=== PATIENT | female | born 1940 | race Caucasian/White ===

== ENCOUNTER 2024-08-12 14:28 | Outpatient (AMB) | payer OTHER, SELFPAY ==
--- NOTE | 2024-08-12 15:15 | HO.NEPHOV ---
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 She is 83 years of age with hypertension well over 20 years. She has been on multiple anti hypertensive medications and her BP has been at goal. She has remote H/O breast cancer but has no H/O proteinuria or retinopathy. She has H/O Afib and renal cyst but no H/O DM , SHELLIE, PAD, carotid stenosis, CVA, CAD , CHF or renal calculi. She does not take any excess NSAID's. She does not get any recurrent UTI. She has been having CKD3 for some time. She denies any H/O hepatitis, new bone or back pain. She feels well [facility] Medical History (Updated 08/12/24 @ 16:00 by Spenser Singh MD) Renal cyst Breast cancer Osteoporosis Chronic a-fib Hyperlipidemia Hypertension Chronic kidney disease, stage 3a Surgical History Hx of cholecystectomy S/P lumpectomy, right breast S/P lumpectomy, left breast Family History Father Stroke Mother Lung cancer Social History (Updated 08/12/24 @ 15:18 by Noemy Subramanian MA) Alcohol intake: never Patient Tobacco Use Status: Former Tobacco user Review of Systems Const All systems reviewed & are unremarkable except as noted in HPI and below Physical Exam Vital Signs: Last Vital Signs Pulse 57 08/12/24 15:18 BP 138/72 08/12/24 15:18 Pulse Ox 100 08/12/24 15:18 Oxygen Delivery Method Room Air 08/12/24 15:18 BMI result Body Mass Index 30.4 Const General: comfortable and no acute distress Orientation/consciousness: patient oriented x3 HEENT Head: Yes normocephalic Mouth: Normal oral and palatal mucosa present Eyes EOM: EOMs intact bilaterally Neck Neck: Yes supple Resp Auscultation: clear to auscultation bilaterally Cardio Jugular venous distension: no JVD Rate: regular rate GI Palpation (GI): Soft to palpation Auscultation: normal bowel sounds General: Yes no CVA tenderness Back/Spine/Pelvis Back: no CVA tenderness Skin General skin exam: no rashes or lesions noted Neuro General: patient oriented x3 and moves all extremities Extrem General: Yes no pedal edema Results Reviewed Nephrology Results: No Data to Display Assessment & Plan Assessment & Plan (1) Hypertension: Code(s): I10 - Essential (primary) hypertension Category: Medical Qualifiers: Hypertension type: primary hypertension Qualified Code(s): I10 - Essential (primary) hypertension (2) Chronic kidney disease, stage 3a: Code(s): N18.31 - Chronic kidney disease, stage 3a Category: Medical (3) Renal cyst: Code(s): N28.1 - Cyst of kidney, acquired Category: Medical Plan Mimi has CKD for some time. Her renal function has been stable. Most likely her CKD is due to vascular disease. She is not known to have DM or proteinuria. She has no hematuria or flank pain. I ordered renal USS and Doppler of renal arteries. Her BP is currently at goal. She avoids excessive NSAID's and maintain good hydration. She is tolerating ARB well. I did not make any medication changes. All her and her husbands questions were answered. Labs will be repeated at next visit. F/U given Orders: Orders US renal BI 08/12/24 I10 - Essential (primary) hypertension, N18.31 - Chronic kidney disease, stage 3a, N28.1 - Cyst of kidney, acquired US renal doppler 08/12/24 I10 - Essential (primary) hypertension, N18.31 - Chronic kidney disease, stage 3a, N28.1 - Cyst of kidney, acquired Coding Level of Care Code New Pt Level 4 (74955) Diagnoses Primary hypertension I10 Hypertension type: primary hypertension Chronic kidney disease, stage 3a N18.31 Renal cyst N28.1
[2024-08-12 15:18] VITALS: BP 138/72; PULSE 57; O2SAT 100; BMI 30.4
== END 2024-08-12 16:11 | disposition home or self-care (01) ==
PROVIDERS: PCP Hospitalist; Referring Provider Hospitalist; Visit Provider Internal Medicine Nephrology
DX: I10 Essential (primary) hypertension (principal); N18.31 Chronic kidney disease, stage 3a; N28.1 Cyst of kidney, acquired
CPT/HCPCS: 99204

== ENCOUNTER → 2024-08-12 14:28 | Outpatient (BNVA) | payer OTHER, SELFPAY | PROVIDERS: PCP Hospitalist; Referring Provider Hospitalist; Visit Provider Internal Medicine Nephrology ==

== ENCOUNTER 2024-08-26 08:58 | Outpatient (REF) | payer OTHER, SELFPAY ==
--- NOTE | ~2024-08-26 | US_ITS ---
EXAMINATION: US RETROPERITONEAL LIMITED (RENAL ONLY) CLINICAL INFORMATION: Essential hypertension, renal cyst, CKD. COMPARISON: None available. TECHNIQUE: Ultrasound along with color Doppler imaging and spectral analysis was performed of the kidneys. FINDINGS: Peak systolic velocity in the abdominal aorta in the region of the main renal arteries is 73.2 cm/sec. RIGHT KIDNEY: 9.8 x 4.9 x 3.9 cm (SAG x AP x TRV). The kidney is normal in size, contour, and echogenicity. Renal cortical thickness is normal. No calculi or focal parenchymal lesions. Right upper pole cyst 1.6 x 1.8 x 2.1 cm with thin septation. No hydronephrosis. RIGHT: Peak systolic velocities in the right main renal artery are as follows: At the hilum = 120 cm/sec. At the mid portion = 90 cm/sec. At the origin = 79 cm/sec. The right main renal artery/aorta peak systolic velocity ratio is 1.64, which is within normal limits. Systolic acceleration times in the arcuate arteries of the right kidney are as follows: Superior pole = 0.77 msec. Interpolar region = 0.68 msec. Inferior pole = 0.81 msec. There is no tardus-parvus morphology seen. Diastolic flow is preserved within the right renal artery. Renal vein patent. LEFT KIDNEY: 11.0 x 6.4 x 5.1 cm (SAG x AP x TRV). The kidney is normal in size, contour, and echogenicity. Renal cortical thickness is normal. No calculi or focal parenchymal lesions. Multiple cysts, the largest in the lower pole with septation measuring 6.3 x 3.7 x 4.3 cm. No hydronephrosis. LEFT: Peak systolic velocities in the left main renal artery are as follows: At the hilum = 192 cm/sec. At the mid portion = 99 cm/sec. At the origin = 132 cm/sec. The left main renal artery/aorta peak systolic velocity ratio is 2.62, which is abnormal. Systolic acceleration times in the arcuate arteries of the left kidney are as follows: Superior pole = 0.79 msec. Interpolar region = 0.85 msec. Inferior pole = 0.85 msec. There is no tardus-parvus morphology seen. Diastolic flow is preserved within the left renal artery. Renal vein patent. US/US renal doppler IMPRESSION: 1. Suggestion of mild left renal artery stenosis, nonhemodynamically significant. 2. Bilateral renal cysts with septation. 3. No renal calculi or obstructive uropathy. Electronically signed by: Jone Pardo DO 08/26/2024 03:42 PM EDT
== END 2024-08-26 08:59 | disposition home or self-care (01) ==
LOC: HO.US 08:58
PROVIDERS: PCP Hospitalist; Visit Provider Internal Medicine Nephrology
DX: I10 Essential (primary) hypertension (principal); N18.31 Chronic kidney disease, stage 3a; N28.1 Cyst of kidney, acquired
CPT/HCPCS: 76775; 93975

== ENCOUNTER 2024-11-30 10:46 | Outpatient (AMB) | payer OTHER, SELFPAY ==
[2024-11-30 10:59] VITALS: BP 150/70; PULSE 82; O2SAT 97; BMI 29.9
--- NOTE | 2024-11-30 10:59 | HO.NEPHOV_ITS ---
Vital Signs 11/30/24 10:59 Height 5 ft 2 in Weight 163 lb 8 oz BMI 29.9 BP 150/70 H Blood Pressure Location Rt brachial Position Sitting Pulse 82 Pulse Source Pulse Oximeter Pulse Oximetry (%) 97 Oxygen Delivery Method Room Air Intake Visit Reasons: 3mon follow up-Conf Child Adolescent Psychiatrist Required: No Accompanied by: Spouse Allergies penicillamine Allergy (Verified 11/30/24 10:59) Unknown HPI Comments Details: Mimi was seen for follow up of management of her CKD, hypertension and renal cyst. She is 84 years of age with hypertension well over 20 years. She has been on multiple anti hypertensive medications and her BP has been at goal. She has remote H/O breast cancer but has no H/O proteinuria or retinopathy. She has H/O Afib and renal cyst but no H/O DM , SHELLIE, PAD, carotid stenosis, CVA, CAD , CHF or renal calculi. She does not take any excess NSAID's. She does not get any recurrent UTI. She has been having CKD3 for some time. She denies any H/O hepatitis, new bone or back pain. She feels well [facility] Medical History (Updated 11/30/24 @ 11:27 by Spenser Singh MD) Renal cyst Breast cancer Osteoporosis Chronic a-fib Hyperlipidemia Hypertension Chronic kidney disease, stage 3a Surgical History Hx of cholecystectomy S/P lumpectomy, right breast S/P lumpectomy, left breast Family History Father Stroke Mother Lung cancer Social History Alcohol intake: never Patient Tobacco Use Status: Former Tobacco user Review of Systems Const All systems reviewed & are unremarkable except as noted in HPI and below Physical Exam Vital Signs: Last Vital Signs Pulse 82 11/30/24 10:59 BP 150/70 H 11/30/24 10:59 Pulse Ox 97 11/30/24 10:59 Oxygen Delivery Method Room Air 11/30/24 10:59 BMI result Body Mass Index 29.9 Const General: comfortable and no acute distress Orientation/consciousness: patient oriented x3 HEENT Head: Yes normocephalic Mouth: Normal oral and palatal mucosa present Eyes EOM: EOMs intact bilaterally Neck Neck: Yes supple Resp Auscultation: clear to auscultation bilaterally Cardio Jugular venous distension: no JVD Rate: regular rate GI Palpation (GI): Soft to palpation Auscultation: normal bowel sounds General: Yes no CVA tenderness Back/Spine/Pelvis Back: no CVA tenderness Skin General skin exam: no rashes or lesions noted Neuro General: patient oriented x3 and moves all extremities Extrem General: Yes no pedal edema Results Reviewed Nephrology Results: Renal US 08/26/24 Assessment & Plan Assessment & Plan (1) Chronic kidney disease, stage 3a: Code(s): N18.31 - Chronic kidney disease, stage 3a Category: Medical (2) Renal cyst: Code(s): N28.1 - Cyst of kidney, acquired Category: Medical (3) Renovascular hypertension: Code(s): I15.0 - Renovascular hypertension Category: Medical Plan Mimi has CKD for some time. Her renal function has been stable. She has renovascular disease. She is not known to have DM or proteinuria. She has no hematuria or flank pain. Her BP is currently at goal, most of the time. If she has her BP going up, we shall increase her metoprolol. She avoids excessive NSAID's and maintain good hydration. She is tolerating ARB well. I did not make any medication changes. All her and her husbands questions were answered. F/U given Orders: Orders Blood Urea Nitrogen 6 Months I15.0 - Renovascular hypertension, N18.31 - Chron ic kidney disease, stage 3a, N28.1 - Cyst of kidney, acquired Electrolytes 6 Months I15.0 - Renovascular hypertension, N18.31 - Chronic kidney disease, stage 3a, N28.1 - Cyst of kidney, acquired Creatinine 6 Months I15.0 - Renovascular hypertension, N18.31 - Chronic kidney disease, stage 3a, N28.1 - Cyst of kidney, acquired Coding Level of Care Code Est Pt Level 4 (43597) Diagnoses Chronic kidney disease, stage 3a N18.31 Renal cyst N28.1 Renovascular hypertension I15.0
--- OUTSIDE RECORDS SUMMARY | 2024-11-30 11:39 | XMS_ITS | Clinical Summary ---
Author Organization [facility] Address [address] [place] [address] Care Team Providers Care Head Teacher Name Role Phone Patrice Alvarez MD Primary Care Provider [phone] Allergies Active Allergy Reactions Criticality Noted Date Comments Penicillins 10/10/2017 Medications Medication Sig Dispensed Refills Start Date End Date Status warfarin (COUMADIN) 1 MG tablet Take 1 mg by mouth daily. 0 Active calcium acetate (PHOSLO) 667 MG capsule Take 667 mg by mouth 2 (two) times a day. 0 Active metoprolol succinate (TOPROL-XL) 24 hr tablet 100 mg Take 100 mg by mouth daily. 0 Active Multiple Vitamins-Minerals (PRESERVISION AREDS) CAPS Take by mouth daily. 0 Active atorvastatin (LIPITOR) tablet 20 mg Take 20 mg by mouth daily. 0 Active ibandronate (BONIVA) 150 MG tablet Take 1 tablet (150 mg total) by mouth every 30 (thirty) days. Take in AM with glass of water prior to food, don't lie down for 30 minutes. 1 tablet 11 04/11/2017 Active letrozole (FEMARA) 2.5 MG tablet Take 2.5 mg by mouth daily. 0 Active losartan-hydrochloroth iazide (HYZAAR) 100-25 MG per tablet Take 1 tablet by mouth daily. 0 Active Cholecalciferol (VITAMIN D) 2000 units tablet Take 2,000 Units by mouth daily. 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 breast 04/11/2017 Family History Medical History Relation Name Comments Cancer Mother lung Relation Name Status Comments Mother Social History Tobacco Use Types Packs/Day Years Used Date Smoking Tobacco: Former Smokeless Tobacco: Never Alcohol Use Standard Drinks/Week Comments No 0 (1 standard drink = 0.6 oz pur e alcohol) Sex and Gender Information Value Date Recorded Sex Assigned at Not on file Gender Identity Not on file Sexual Orientation Not on file Job Start Date Occupation Industry Not on file Not on file Not on file Last Filed Vital Signs Vital Sign Reading Time Taken Comments Blood Pressure 141/72 04/23/2022 9:04 AM EDT Pulse 79 04/23/2022 9:04 AM EDT Temperature 36.7 ??C (98.1 ??F) 04/23/2022 9:04 AM ED T Respiratory Rate - - Oxygen Saturation 98% 04/23/2022 9:04 AM EDT Inhaled Oxygen Concentration - - Weight 78.5 kg (173 lb) 04/23/2022 9:04 AM EDT Height 157.5 cm (5' 2 ) 04/23/2022 9:04 AM EDT Body Mass Index 31.64 04/23/2022 9:04 AM EDT Plan of Treatment Health Maintenance Due Date Last Done Comments COVID-19 Vaccine (#1) 1945 Pneumococcal Vaccine (1 of 2 - PCV) 1946 Depression Screening 1952 BMI Counseling 1958 Preventative Health Evaluation 1958 DTap / Tdap / Td (1 - Tdap) 1959 Shingrix-Zoster Vaccine (1 of 2) 1959 Fall Risk Assessment 2005 Osteoporosis Screening (DEXA Scan) 2005 RSV Adult > 60+ Yrs or Pregn ant (1 - 1-dose 75+ series) 2015 Influenza Vaccine (#1) 2024 Hepatitis B Vaccines Aged Out No long er eligible based on patient's age to complete this topic RSV Ped < 20 months Aged Out No longe r eligible based on patient's age to complete this topic Care Teams Head Teacher Relationship Specialty Start Date End Date Patrice Alvarez MD PCP - General Internal Medicine 04/11/17
--- OUTSIDE RECORDS SUMMARY | 2024-11-30 11:39 | XMS_ITS | Encounter Summary ---
Author Organization [facility] Address [address] [place] [id number] Care Team Providers Care Mold Finisher Name Role Phone Patrice Alvarez MD Primary Care Provider [phone] Encounter Details Date Type Department Care Team (Late st Contact Info) Description 11/17/2024 Anticoagulation - Warfarin Visit [facility] Cardiology [facility] [address] [place] [id number] Jeet Gong MD [address] [place] [address] Atrial fibrillation, unspecified type (CMS/HCC) (Primary Dx) Social History Tobacco Use Types Packs/Day Years [...] file Not on file Not on file documented as of this encounter Progress Notes * Rommel Espinoza MA - 11/17/2024 1:57 PM EST Patient aware of instructions documented in this encounter Plan of Treatment Upcoming Encounters Date Type Department Care Team (Late st Contact Info) Description 01/11/2025 9:00 AM EDT Ancillary Procedure [facility] Cardiology [facility] [address] [place] [id number] documented as of this encounter Visit Diagnoses Diagnosis Atrial fibrillation, unspecified type (CMS/HCC)- Primary documented in this encounter Care Teams Mold Finisher Relationship Specialty Start Date End Date Patrice Alvarez MD [address] [place] [phone] PCP - General Internal Medicine 09/18/20 documented as of this encounter
--- OUTSIDE RECORDS SUMMARY | 2024-11-30 11:40 | XMS_ITS | Clinical Summary ---
Author Organization [address] [facility] Address [address] [facility] [place] [address] Phone Care Team Providers Care Electroplater Apprentice Name Role Phone Amaya Gomez MD Primary Care Provider [phone] Allergies Active Allergy Reactions Criticality Noted Date Comments Influenza A (H1n1) Virus Vac cine Monovalent 200810/04/2024 Penicillins 10/10/2017 Medications Medication Sig Dispensed Refills Start Date End Date Status warfarin (COUMADIN) 1 mg tablet Take 1-2 tabs as directed by [facility] 01/30/2023 Active atorvastatin (LIPITOR) 20 mg tablet Take 1 tablet (20 mg total) by mouth at bedtime. Active ibandronate (BONIVA) 150 mg tablet Take 1 tablet (150 mg total) by mouth every 30 (thirty) days. Take in AM with glass of water prior to food, don't lie down for 30 minutes. 04/11/2017 Active metoprolol succinate (TOPROL-XL) 100 mg 24 hr tablet Take 100 mg by mouth daily. Active losartan-hydroCHL OROthiazide (HYZAAR) 100-25 mg per tablet Take 1 tablet by mouth 1 (one) time each day. Active warfarin (COUMADIN) 5 mg tablet TAKE 1 TABLET BY MOUTH EVERY DAY 90 tablet 3 11/30/2024 Active warfarin (COUMADIN) 5 mg tablet Take 1 tablet (5 mg total) by mouth 1 (one) time each day. 12/08/2023 11/30/2024 Discontinued Active Problems Problem Noted Date Diagnosed Date A-fib 09/29/2024 Tricuspid valve insufficiency, non-rheumatic Hypertension 11/21/2021 Nonrheumatic mitral valve regurgitation 11/21/19 22 SOB (shortness of breath) 11/21/2021 Heart murmur 11/08/2020 Overview (10/04/2024): Murmur Hyperlipidemia 11/08/2020 Overview (10/04/2024): Hyperlipidemia Encounters Date Type Department Care Team Description 11/17/2024 Anticoagulation - Warfarin Visit [facility] [address] [place] [address] Jeet Gong MD Atrial fibrillation, unspecified type (CMS/HCC) (Primary Dx) 10/28/2024 Anticoagulation - Warfarin Visit [facility] [address] [place] [address] Jeet Gong MD Atrial fibrillation, unspecified type (CMS/HCC) (Primary Dx) 10/13/2024 Anticoagulation - Warfarin Visit [facility] [address] [place] [address] Jeet Gong MD Atrial fibrillation, unspecified type (CMS/HCC) (Primary Dx) 10/06/2024 Anticoagulation - Warfarin Visit [facility] [address] [place] [address] Jeet Gong MD Atrial fibrillation, unspecified type (CMS/HCC) (Primary Dx) 10/06/2024 Anticoagulation - Warfarin Visit [facility] [address] [place] [address] Jeet Gong MD Atrial fibrillation, unspecified type (CMS/HCC) (Primary Dx) 09/29/2024 Anticoagulation - Warfarin Visit [facility] [address] [place] [address] Jeet Gong MD Atrial fibrillation, unspecified type (CMS/HCC) [I48.91] (Primary Dx) 09/01/2024 Anticoagulation - Warfarin Visit [facility] [address] [place] [address] Jeet Gong MD Atrial fibrillation, unspecified type (CMS/HCC) [I48.91] (Primary Dx) from Last 3 Months Social History Tobacco Use Types Packs/Day Years [...] file Not on file Not on file Obstetrics History Last Filed Vital Signs Vital Sign Reading Time Taken Comments Blood Pressure 134/68 01/12/2024 9:47 AM EDT Pulse 71 01/12/2024 9:28 AM EDT Temperature - - Respiratory Rate - - Oxygen Saturation - - Inhaled Oxygen Concentration - - Weight 78.5 kg (173 lb) 01/12/2024 9:28 AM EDT Height 154.9 cm (5' 1 ) 01/12/2024 9:28 AM EDT Body Mass Index 32.69 01/12/2024 9:28 AM EDT Plan of Treatment Upcoming Encounters Date Type Department Care Team (Late st Contact Info) Description 01/11/2025 9:00 AM EDT Ancillary Procedure [facility] [address] [place] [address] Health Maintenance Due Date Last Done Comments Zoster Vaccines (2 of 2) 10/08/2019 08/13/2019 Cholesterol Screening (Lipid Panel) 10/04/2022 Depression Screening 10/04/2022 Falls Risk Assessment 10/04/2022 Medicare Annual Wellness Visit 10/04/2022 Social Influencers of Health Screening 10/04/2022 Hypertension/CHF/CAD Annual BMP Blood Test 10/06/2022 Osteoporosis Screening (Bone Density Screening) 03/18/2033 03/18/2023, 03/05/2021, 02/15/2019 DTaP,Tdap,and Td Vaccines (2 - Td or Tdap) 06/25/2033 06/25/2023 Pneumococcal Vaccine: 65+ Years Completed 02/11/2020, 01/22/2019 RSV Immunization Patients 60+ Years Old Completed 07/01/2023 COVID-19 Vaccine Completed 07/06/2024, , 07/08/2022, Additional history exists Influenza Vaccine Completed 07/06/2024, , 07/08/2022, Additional history exists HIB Vaccines Aged Out No longer eligi ble based on patient's age to complete this topic HPV Vaccines Aged Out No longer eligi ble based on patient's age to complete this topic Hepatitis A Vaccines Aged Out No long er eligible based on patient's age to complete this topic Hepatitis B Vaccines Aged Out No long er eligible based on patient's age to complete this topic IPV Vaccines Aged Out No longer eligi ble based on patient's age to complete this topic MMR Vaccines Aged Out No longer eligi ble based on patient's age to complete this topic Meningococcal ACWY Vaccine Aged Out N o longer eligible based on patient's age to complete this topic RSV Immunization Patients Under 20 months Aged Out No longer eligible based on patient's age to complete this topic Varicella Vaccines Aged Out No longer eligible based on patient's age to complete this topic Procedures Procedure Name Priority Date/Time Associated Diagnosis Comments PROTHROMBIN TIME WITH INR Routine 11/17/2024 8:35 AM EST Atrial fibrillation (CMS/HCC) PROTHROMBIN TIME WITH INR Routine 10/28/2024 7:46 AM EST Atrial fibrillation (CMS/HCC) PROTHROMBIN TIME WITH INR Routine 10/13/2024 9:29 AM EST Atrial fibrillation (CMS/HCC) PROTHROMBIN TIME WITH INR Routine 10/06/2024 9:07 AM EST Atrial fibrillation (CMS/HCC) PROTHROMBIN TIME WITH INR Routine 10/06/2024 PROTHROMBIN TIME WITH INR Routine 09/29/2024 8:53 AM EST Atrial fibrillation (CMS/HCC) PROTHROMBIN TIME WITH INR Routine 09/01/2024 8:51 AM EST Atrial fibrillation (CMS/HCC) [facility] DEXA AXIAL SKELETON Routine 03/18/2023 10:06 AM EDT Other specified disorders of bone density and structure, other site from Last 3 Months or Most Recently Relevant to Health Maintenance Results * (ABNORMAL) Prothrombin time with INR (11/17/2024 8:35 AM EST) Only the most recent of7 resultswithin the time period is included. Protime 25.7(H) 10.6 - 13.9 sec LAB COAGULATION METHOD 11/17/2024 12:26 PM EST [facility] INR 2.0 LAB COAGULATION METHOD 11/17/2024 12:26 PM EST [facility] Blood Venous blood specimen / Unknown Venipuncture / Unknown 11/17/2024 8:35 AM EST 11/17/2024 8:35 AM EST Jeet Gong MD LAB BLOOD ORDERABL ES [facility] [address] [place] [address], * [facility] DEXA AXIAL SKELETON (03/18/2023 10:06 AM EDT) Anatomical Region Laterality Modality Mammography 03/18/2023 8:55 AM EDT Narrative 03/18/2023 10:06 AM EDT [facility] Diagnostic Imaging Department [address] [place] [address] Patient: ??JOSE ARMANDO TRAN ?/Age/Sex: 1940 - F Unit#: ??[id number] ? Location/Status: ??SPDIMAM/REG CLI ? Mnemonic/Ordering Site: ??MAMDEXAAX/SPMAM Ordering Physician: ??AMAYA GOMEZ MD [facility] Dexa Axial Skeleton - 03/18/23947 HISTORY: ??The patient is an 82-year-old postmenopausal female with clinical concern for metabolic bone disease. FINDINGS: ??Dual energy x-ray absorptiometry of the lumbar spine and femurs is performed. The mean bone mineral density at L2-3 is 1.164 gm/cm2 which is 97% of that of young normals and 113% of that of age matched controls. This yields a T- score of -0.3 and a Z-score of 1.1 and there is therefore no evidence of osteoporosis or osteopenia here. The mean bone mineral density of the femurs bilaterally is 0.859 gm/cm2 which is 85% of that of young normals and 110% of that of age matched controls. ??This yields a T-score of -1.2 and a Z-score of 0.6 which is diagnostic of osteopenia. The T-score of the right femoral neck is -1.9 and that of the left femoral neck is -2.0 which is diagnostic of osteopenia. IMPRESSION: 1. Osteopenia. ??There has been an increase of 2.4% in bone mineral density in the lumbar spine since the prior examination of 03/05/2021. ??There has been an increase of 0.1% in bone mineral density in the right femur and an increase of 2.4% in bone mineral density in the left femur. 2. FRAX analysis yields a 10-year probability of major osteoporotic fracture of 14.7% and a 10-year probability of hip fracture of 4.3%. Code 22219 Dictating Physician: ??BALDO BANERJEE MD Electronically Signed by: ??BALDO BANERJEE MD Dic Date/Time: ??03/18/23 1005 Sign date/Time: ??03/18/23 1006 Procedure Note Baldo Banerjee MD - 11/28/2023 [facility] Diagnostic Imaging Department [address] [place] [id number] Patient: JOSE ARMANDO TRAN Izzy CristinaB./Age/Sex: 1940 - F Unit#: [id number] Location/Status: [facility] CLI [facility] Ordering Physician: AMAYA GOMEZ MD [facility] Dexa Axial Skeleton - 03/18/23947 HISTORY: The patient is an 82-year-old postmenopausal female withclinical concern for metabolic bone disease. FINDINGS: Dual energy x-ray absorptiometry of the lumbar spine and femursis performed. The mean bone mineral density at L2-3 is 1.164 gm/cm2 which is97% of that of young normals and 113% of that of age matched controls. Thisyields a T- score of -0.3 and a Z-score of 1.1 and there is therefore no evidence of osteoporosis or osteopenia here. The mean bone mineral density of the femurs bilaterally is 0.859 gm/gm2keqtq is 85% of that of young normals and 110% of that of age matched controls.This yields a T-score of -1.2 and a Z-score of 0.6 which is diagnostic ofosteopenia. The T-score of the right femoral neck is -1.9 and that of the left femoralneck is -2.0 which is diagnostic of osteopenia. IMPRESSION: 1. Osteopenia. There has been an increase of 2.4% in bone mineral densityin the lumbar spine since the prior examination of 03/05/2021. There has beenan increase of 0.1% in bone mineral density in the right femur and anincrease of 2.4% in bone mineral density in the left femur. 2. FRAX analysis yields a 10-year probability of major osteoporoticfracture of 14.7% and a 10-year probability of hip fracture of 4.3%. Code 07893 Dictating Physician: BALDO BANERJEE MD Electronically Signed by: BALDO BANERJEE MD Dic Date/Time: 03/18/23 1005 Sign date/Time: 03/18/23 1006 Amaya Gomez MD IMG BI PROCEDURES from Last 3 Months or Most Recently Relevant to Health Maintenance Advance Directives Documents on File Type Date Recorded Patient Home Health Lpn Expl anation Health Care Decision (hx) 11/24/2014 AD MTZ DIRECTIVE Health Care Decision (hx) 11/24/2014 AD MTZ DIRECTIVE Health Care Decision (hx) 11/24/2014 AD MTZ DIRECTIVE Health Care Decision (hx) 11/24/2014 AD MTZ DIRECTIVE Health Care Decision (hx) 11/24/2014 AD MTZ DIRECTIVE Health Care Decision (hx) 11/24/2014 AD MTZ DIRECTIVE Health Care Decision (hx) 11/24/2014 AD MTZ DIRECTIVE Health Care Decision (hx) 11/24/2014 AD MTZ DIRECTIVE Health Care Decision (hx) 11/24/2014 AD MTZ DIRECTIVE Health Care Decision (hx) 11/24/2014 AD MTZ DIRECTIVE Health Care Decision (hx) 11/24/2014 AD MTZ DIRECTIVE Health Care Decision (hx) 11/24/2014 AD MTZ DIRECTIVE Care Teams Electroplater Apprentice Relationship Specialty Start Date End Date Amaya Gomez MD [address] [place] [address] PCP - General Internal Medicine 09/18/20
== END 2024-11-30 11:41 | disposition home or self-care (01) ==
PROVIDERS: PCP Hospitalist; Visit Provider Internal Medicine Nephrology
DX: I12.9 Hypertensive chronic kidney disease with stage 1 through stage 4 chronic kidney disease, or unspecified chronic kidney disease (principal); N18.31 Chronic kidney disease, stage 3a; N28.1 Cyst of kidney, acquired
CPT/HCPCS: 99214

== ENCOUNTER → 2024-11-30 10:46 | Outpatient (BNVA) | payer OTHER, SELFPAY | PROVIDERS: PCP Hospitalist; Visit Provider Internal Medicine Nephrology ==

== ENCOUNTER 2025-06-30 10:58 | Outpatient (AMB) | payer OTHER, SELFPAY ==
--- NOTE | 2025-06-30 11:05 | HO.NEPHOV_ITS ---
Vital Signs 06/30/25 11:07 Height 5 ft 2 in Weight 161 lb 2 oz BMI 29.5 BP 160/72 H Blood Pressure Location Lt brachial Position Sitting Pulse 72 Pulse Source Pulse Oximeter Pulse Oximetry (%) 96 Oxygen Delivery Method Room Air Intake Visit Reasons: Follow up 6mo-Conf Manager Stylist Required: No Accompanied by: Spouse Allergies penicillamine Allergy (Verified 06/30/25 11:07) Unknown HPI Comments Details: Mimi was seen for follow up of management of her CKD, hypertension and renal cyst. She is 84 years of age with hypertension well over 20 years. She has been on multiple anti hypertensive medications and her BP has been at goal. She has remote H/O breast cancer but has no H/O proteinuria or retinopathy. She has H/O Afib and renal cyst but no H/O DM , SHELLIE, PAD, carotid stenosis, CVA, CAD , CHF or renal calculi. She does not take any excess NSAID's. She does not get any recurrent UTI. She has been having CKD3 for some time. She denies any H/O hepatitis, new bone or back pain. Her BP is at goal at home [facility] Medical History (Updated 11/30/24 @ 11:27 by Spenser Singh MD) Renal cyst Breast cancer Osteoporosis Chronic a-fib Hyperlipidemia Hypertension Chronic kidney disease, stage 3a Surgical History Hx of cholecystectomy S/P lumpectomy, right breast S/P lumpectomy, left breast Family History Father Stroke Mother Lung cancer Social History Alcohol intake: never Patient Tobacco Use Status: Former Tobacco user Review of Systems Const All systems reviewed & are unremarkable except as noted in HPI and below Physical Exam Const General: comfortable and no acute distress Orientation/consciousness: patient oriented x3 HEENT Head: Yes normocephalic Mouth: Normal oral and palatal mucosa present Eyes EOM: EOMs intact bilaterally Neck Neck: Yes supple Resp Auscultation: clear to auscultation bilaterally Cardio Jugular venous distension: no JVD Rate: regular rate GI Palpation (GI): Soft to palpation Auscultation: normal bowel sounds General: Yes no CVA tenderness Back/Spine/Pelvis Back: no CVA tenderness Skin General skin exam: no rashes or lesions noted Neuro General: patient oriented x3 and moves all extremities Extrem General: Yes no pedal edema Results Reviewed Nephrology Results: Renal US 08/26/24 Assessment & Plan Assessment & Plan (1) Renovascular hypertension: Code(s): I15.0 - Renovascular hypertension Category: Medical (2) Chronic kidney disease, stage 3a: Code(s): N18.31 - Chronic kidney disease, stage 3a Category: Medical (3) Renal cyst: Code(s): N28.1 - Cyst of kidney, acquired Category: Medical Plan Mimi has CKD for some time. Her renal function has been stable. She has renovascular disease. She is not known to have DM or proteinuria. She has no hematuria or flank pain. Her BP is currently at goal, most of the time. If she has her BP going up, we shall increase her metoprolol. She avoids excessive NSAID's and maintain good hydration. She is tolerating ARB well. I did not make any medication changes. All her and her husbands questions were answered. F/U given Orders: Orders Creatinine 1 Year I15.0 - Renovascular hypertension, N18.31 - Chronic kidney disease, stage 3a, N28.1 - Cyst of kidney, acquired Blood Urea Nitrogen 1 Year I15.0 - Renovascular hypertension, N18.31 - Chronic kidney disease, stage 3a, N28.1 - Cyst of kidney, acquired Electrolytes 1 Year I15.0 - Renovascular hypertension, N18.31 - Chronic kidney disease, stage 3a, N28.1 - Cyst of kidney, acquired Coding Level of Care Code Est Pt Level 4 (67935) Diagnoses Renovascular hypertension I15.0 Chronic kidney disease, stage 3a N18.31 Renal cyst N28.1
[2025-06-30 11:07] VITALS: BP 160/72; PULSE 72; O2SAT 96; BMI 29.5
--- OUTSIDE RECORDS SUMMARY | 2025-06-30 12:34 | XMS_ITS | Encounter Summary ---
Author Organization [facility] Address [address] [place] [address] Care Team Providers Care Fish Smoker Name Role Phone Patrice Alvarez MD Primary Care Provider [phone] Encounter Details Date Type Department Care Team (Late st Contact Info) Description 06/29/2025 Anticoagulation - Warfarin Visit [facility] [address] [facility] [address] [place] [address] Jeet Gong MD [address] [place] [address] [address] [place] [address] Atrial fibrillation, unspecified type (CMS/HCC V24, CMS/HCC V28) (Primary Dx) Social History Tobacco Use Types Packs/Day Years Used Date Smoking Tobacco: Former Smokeless Tobacco: Never Alcohol Use Standard Drinks/Week Comments No 0 (1 standard drink = 0.6 oz pur e alcohol) Comments No Sex and Gender Information Value Date Recorded Sex Assigned at Not on file Legal Sex Female 4:48 AM EST Gender Identity Not on file Sexual Orientation Not on file documented as of this encounter Progress Notes * Rommel Espinoza MA - 06/29/2025 3:18 PM EDT Patient aware of instructions documented in this encounter Plan of Treatment Upcoming Encounters Date Type Department Care Team (Late st Contact Info) Description 09/06/2025 1:10 PM EST Office Visit [facility] - [address] [facility] [address] [place] [address] Yulissa Mukherjee PA [address] [place] [address] Dr [address] [place] [address] documented as of this encounter Visit Diagnoses Diagnosis Atrial fibrillation, unspecified type (CMS/HCC V24, CMS/HCC V28)- Primary documented in this encounter Care Teams Fish Smoker Relationship Specialty Start Date End Date Patrice Alvarez MD [address] [place] [phone] PCP - General Internal Medicine 09/18/20 documented as of this encounter
--- OUTSIDE RECORDS SUMMARY | 2025-06-30 12:34 | XMS_ITS | Clinical Summary ---
Author Organization [facility] Address [address] [place] [address] Care Team Providers Care Sales & Service Associate Name Role Phone Patrice Alvarez MD Primary Care Provider [phone] Allergies Active Allergy Reactions Criticality Noted Date [...] 79 04/23/2022 9:04 AM EDT Temperature 36.7 C (98.1 F) 04/23/2022 9:04 AM EDT Respiratory Rate - - Oxygen Saturation 98% [...] 1-dose 75+ series) 2015 Influenza Vaccine (#1) 2025 Hepatitis B Vaccines Aged Out No long er eligible based on patient's age to complete this topic RSV Ped < 20 months Aged Out No longe r eligible based on patient's age to complete this topic Care Teams Sales & Service Associate Relationship Specialty Start Date End Date Patrice Alvarez MD PCP - General Internal Medicine 04/11/17
--- OUTSIDE RECORDS SUMMARY | 2025-06-30 12:34 | XMS_ITS | Patient Health Record ---
[facility] Organization [facility] Address [address] [place] [address] Care Team Providers Care Customs And Border Protection Officer Name Role Phone AMAYA GOMEZ Primary Care Provider Emily Rodrigues Unavailable [phone] Allergies Allergen (clinical drug ingredient) Drug/Non Drug Allergy documented on EMR Reaction Allergy Type Onset Date Status penicillamine Penicillamine Unknown Drug Allergy Active Results Component Value Reference Range Notes PROTHROMBIN TIME WITH INR Reviewed date:06/29/2025 04:39:49 PM Interpretation: Performing Lab: Notes/Report: Weekly INR and PRN Protime 24.4 10.6-13.9 sec INR 2.0 ELECTROLYTE PANEL Reviewed date:06/21/2025 05:23:02 PM Interpretation: Performing Lab: Notes/Report: Sodium 139 133-145 mmol/L Potassium 4.3 3.5-5.5 mmol/L Chloride 105 96-110 mmol/L CO2 29 21-32 mmol/L Anion Gap 5 3-11 BUN Reviewed date:06/21/2025 05:23:05 PM Interpretation: Performing Lab: Notes/Report: BUN 24 5-25 mg/dL CREATININE Reviewed date:06/21/2025 05:22:57 PM Interpretation: Performing Lab: Notes/Report: Creatinine 1.23 0.50-1.10 mg/dL eGFR 43 >=60 mL/min/1.73m2 Calculati on based on the Chronic Kidney Disease Epidemiology Collaboration (CKD-EPI) equation refit without adjustment for race. PROTHROMBIN TIME WITH INR Reviewed date:06/15/2025 05:25:02 PM Interpretation: Performing Lab: Notes/Report: Weekly INR and PRN Protime 26.6 10.6-13.9 sec INR 2.1 PROTHROMBIN TIME WITH INR Reviewed date:05/04/2025 01:19:14 PM Interpretation: Performing Lab: Notes/Report: Weekly INR and PRN Protime 26.8 10.6-13.9 sec INR 2.2 PROTHROMBIN TIME WITH INR Reviewed date:03/09/2025 06:29:44 PM Interpretation: Performing Lab: Notes/Report: Protime 28.7 10.6-13.9 sec INR 2.3 PROTHROMBIN TIME WITH INR Reviewed date:02/10/2025 12:09:48 PM Interpretation: Performing Lab: Notes/Report: Protime 26.2 10.6-13.9 sec INR 2.1 PROTHROMBIN TIME WITH INR Reviewed date:06/08/2025 05:10:07 PM Interpretation: Performing Lab: Notes/Report: Weekly INR and PRN Protime 29.4 10.6-13.9 sec INR 2.4 PROTHROMBIN TIME WITH INR Reviewed date:06/01/2025 12:01:02 PM Interpretation: Performing Lab: Notes/Report: Weekly INR and PRN Protime 22.9 10.6-13.9 sec INR 1.8 BD BONE DENSITY DXA AXIAL [facility] Reviewed date:05/19/2025 12:10:58 PM Interpretation: Performing Lab: Notes/Report: Note See Note [facility], a member of [employer] Patient Name: JOSE ARMANDO TRAN Date of : 1940 Reason for Exam: AGE RELATED OSTEOPOROSIS Exam Date: 05/18/2025 [id number] EST Report Status: Final Ordering Provider: AMAYA GOMEZ PCP: AMAYA GOMEZ HISTORY: The patient is an 84-year-old postmenopausal female with clinical concern for metabolic bone disease. FINDINGS: Dual energ y x-ray absorptiometry of the lumbar spine and femurs is performed. The mean bone mineral density at L2-3 is 1.231 gm/cm2 which is 103% of that of young normals and 122% of that of age matched controls. This yields a T-score of 0.3 and a Z-score of 1.8 and there is therefore no evidence of osteoporosis or osteopenia here. The mean bone minera l density of the femurs bilaterally is 0.848 gm/cm2 which is 84% of that of young normals and 112% of that of age matched controls. This yields a T-score of -1.3 and a Z-score of 0.7 which is diagnostic of osteopenia. The T-score of the right femoral neck is -2.1 and that of the left femoral neck is -2.0 which is diagnostic of osteopenia. IMPRESSION: 1. Osteopenia. There has been an increase of 5.8% in bone mineral density in the lumbar spine since the prior examination of 03/18/2023. There has been a decrease of 1.1% in bone mineral density in the right femur and a decrease of 1.5% in bone mineral density in the left femur. 2. FRAX analysis yie lds a 10-year probability of major osteoporotic fracture of 16.0% and a 10-year probability of hip fracture of 5.0%. Code 13759 -------- FINAL REPOR T -------- Dictated By: Patrick Banerjee Dictated Date: 05/18/2025 08:59 ET Assigned Physician: Patrick Banerjee Reviewed and Electronically Signed By: Patrick Banerjee Signed Date: 025 09:01 ET Workstation ID: [id number] Transcribed By: Self Edit Transcribed Date: 05/18/2025 08:59 ET MG MAMMO DIGITAL SCREENING W MARC RODRIGUEZ Reviewed date:03/28/2025 12:34:03 PM Interpretation: Performing Lab: Notes/Report: Note See Note [facility], a member of [facility] Patient Name: JOSE ARMANDO TRAN Date of : 1940 Reason for Exam: Exam Date: 03/28/2025 [id number] EST Report Status: Final Ordering Provider: SELF REFERRAL SPPL PCP: AMAYA GOMEZ EXAM: SCREENING MAMMOGRAPHY, BILATERAL HISTORY: SCREENING. Personal history of breast cancer. Bilateral breast can cer with bilateral lumpectomies. COMPARISON: 03/24/24, 03/18/23, 03/07/22, 03/05/21 TECHNIQUE: Synthesiz ed CC and MLO projections of each breast. Tomosynthesis of each breast in the CC and MLO projections. ADDITIONAL IMAGING: Craniocaudal view of the left breast exaggerated toward the axilla using Tomosynthesis. Computer-aided detection was employed with the iCAD ProFound AI 3-D. TISSUE DENSITY: Ther e are scattered areas of fibroglandular density. (BI-RADS category B) FINDINGS: RIGHT BREAST: No suspicious mass. No new suspicious calcification. No new area of distortion. There is no suspicio us change in the area of prior lumpectomy with associated distortion and skin retraction. There is an evolving area of fat necrosis. There is no change i n a biopsy site marker with a few associated calcifications in the central right breast. There is no suspicious change in the biopsy site marker close to the chest wall in the medial right breast. LEFT BREAST: No suspicious mass. No new suspicious calcification. No new area of distortion. There is no change i n the area of prior lumpectomy including distortion, skin retraction and dystrophic calcification. No new suspicious le ft breast finding IMPRESSION: No mammographic evidence of new or recurrent malignancy. No suspicious interv al change. A negative mammogram in the presence of a clinically suspicious palpable abnormality does not preclude the possibility of malignancy or alter the indications for biopsy. ASSESSMENT: BI-RADS 2: BENIGN RECOMMENDATION(S): 1: Routine screening mammogram BILATERAL in 1 year. [facility]amm[facility] location: [facility] [address], [address] -------- FINAL REPOR T -------- Dictated By: Magnus Winston Dictated Date: 03/28/2025 10:02 ET Assigned Physician: Magnus Zhao Reviewed and Electronically Signed By: Magnus Zhao Signed Date: 025 10:21 ET Workstation ID: [id number] Transcribed By: Self Edit Transcribed Date: 03/28/2025 10:02 ET MICROALBUMIN CREATININE URIN E RATIO Reviewed date:01/12/2025 03:57:25 PM Interpretation: Performing Lab: Notes/Report: Creatinine, Urine 102.0 Microalb, Ur 39.2 0.0-29.0 mg/L Microalb/Creat Ratio 38 <30 mg/g creat PROTHROMBIN TIME WITH INR Reviewed date:01/12/2025 12:10:38 PM Interpretation: Performing Lab: Notes/Report: Protime 26.5 10.6-13.9 sec INR 2.1 COMPREHENSIVE METABOLIC PANE L Reviewed date:01/12/2025 12:40:46 PM Interpretation: Performing Lab: Notes/Report: Sodium 139 133-145 mmol/L Potassium 4.0 3.5-5.5 mmol/L Chloride 100 96-110 mmol/L CO2 28 21-32 mmol/L Anion Gap 11 3-11 Glucose 92 70-100 mg/dL BUN 31 5-25 mg/dL Creatinine 1.22 0.50-1.10 mg/dL eGFR 44 >=60 mL/min/1.73m2 Calculati on based on the Chronic Kidney Disease Epidemiology Collaboration (CKD-EPI) equation refit without adjustment for race. BUN/Creatinine Ratio 25.4 Calcium 9.8 8.5-10.5 mg/dL AST (SGOT) 26 10-42 unit/L ALT (SGPT) 23 10-60 unit/L Alkaline Phosphatase 80 42-121 unit/L Total Protein 7.2 6.0-8.0 g/dL Albumin 4.2 3.2-5.0 g/dL Total Bilirubin 1.0 0.0-1.4 mg/dL LIPID PANEL WITH REFLEX TO D IRECT LDL Reviewed date:01/12/2025 12:40:50 PM Interpretation: Performing Lab: Notes/Report: Cholesterol 119 0-200 mg/dL Triglycerides 78 0-150 mg/dL HDL 55 >=40 mg/dL LDL Calculated 48 0-100 mg/dL VLDL Cholesterol Harvey 15.6 Non HDL Chol. (LDL+VLDL) 64 <145 mg/dL Chol/HDL Ratio 2.2 0.0-4.4 PROTHROMBIN TIME WITH INR Reviewed date:12/16/2024 03:34:56 PM Interpretation: Performing Lab: Notes/Report: Protime 29.2 10.6-13.9 sec INR 2.4 PROTHROMBIN TIME WITH INR Reviewed date:11/17/2024 01:26:06 PM Interpretation: Performing Lab: Notes/Report: Protime 25.7 10.6-13.9 sec INR 2.0 MICROALB/CREAT RATIO, RANDOM Reviewed date:07/07/2024 06:16:42 PM Interpretation: Performing Lab: Notes/Report: Original Ordering Provider: AMAYA GOMEZ MD [facility], a member of [address] [address] [employer] - Jenn Keita MD MICROALBUMIN, RANDOM 25.9 0.0-29.0 mg/L MICROALB/CRE RATIO RANDOM 61.6 0.0-30.0 mg/G CREATININE, RANDOM URINE 42 PT/INR Reviewed date:07/07/2024 06:16:38 PM Interpretation: Performing Lab: Notes/Report: Original Ordering Provider: JOSE DANGELO MD [facility] [address] [employer] - Jenn Keita MD PROTHROMBIN TIME 30.5 10.6-13.9 SEC INR 2.42 LIPID PROFILE Reviewed date:07/07/2024 06:16:45 PM Interpretation: Performing Lab: Notes/Report: [facility], a member of [address] [address] Gate Tender - Jenn Keita MD CHOLESTEROL 113 0-200 mg/dL TRIGLYCERIDES 79 0-150 mg/dL HDL CHOLESTEROL 54 >40 mg/dL LDL CALCULATED 44 0-100 mg/dL TC-HDLC RATIO 2.1 0-4.4 mg/dL COMPREHENSIVE METABOLIC PANE L Reviewed date:07/13/2024 09:48:05 AM Interpretation: Performing Lab: Notes/Report: Original Ordering Provider: AMAYA GOEMZ MD GLUCOSE 76 70-100 mg/dL Reference range applicable to fasting specimens only BUN 38 5-25 mg/dL CREAT 1.22 0.5-1.1 mg/dL GLOMERULAR FILTRATION RATE 44 >60 This eGFR result was calculated using the CKD-EPI 2020 Creatinine Equation SODIUM 139 135-145 mEq/L POTASSIUM 4.3 3.5-5.5 mmol/L CHLORIDE 105 96-110 mmol/L CO2 30 21-32 mmol/L ANION GAP 4 3-11 CALCIUM 9.6 8.5-10.5 mg/dL TOTAL PROTEIN 6.6 6.0-8.0 G/dL ALBUMIN 4.0 3.2-5.0 G/dL BILI,TOTAL 1.0 0.0-1.4 mg/dL SGOT 25 10-42 U/L SGPT 20 10-60 U/L ALK PHOS 67 42-121 U/L PROTHROMBIN TIME WITH INR Reviewed date:04/12/2025 11:06:53 AM Interpretation: Performing Lab: Notes/Report: Protime 31.4 10.6-13.9 sec INR 2.5 Reason For Referral Reason Please evaluate and treat Diagnosis 1 Chronic kidney disea se, stage 3a (N18.31) Referral Organization [facility] Referring Provider First Name CONDE Referring Provider Last Name [facility] Referring Provider Speciality Internal edicine Referred Provider Specialty Nephrology General Notes Referral faxed to Dr Radha Singh's office. Please contact patient and schedule an appt., Keyona Bailey 07/13/2024 09:47:33 AM > Referral Priority Routine Reason Evaluation and manag ement Diagnosis 1 Chronic kidney disea se, stage 3a (N18.31) Referral Organization [facility] Referring Provider First Name [employer] Referring Provider Last Name [facility] Referring Provider Speciality Internal edicine Referred Provider Specialty Nephrology General Notes Referral sent to Dr. Singh - Office will call patient for scheduling., Marci Rodrigues 07/15/2024 11:52:32 AM > Referral Priority Routine Reason Please evaluate and treat-prefers female doctor Please evaluate and treat Diagnosis 1 Abnormal uterine and vaginal bleeding, unspecified (N93.9) Referral Organization [facility] Referring Provider First Name Emily Referring Provider Last Name Lilia Referred Provider Specialty [employer] Member General Notes Please call the tg ent to schedule the appointment, Emmy Dee 01/24/2025 01:28:07 PM > Referral Priority Urgent Medications Medication SIG (Take, Route, Frequency, Duration) Notes Start Date End Date Status hydroCHLOROthiazide 25 MG 1 tablet in morning Orally Once a day; Duration: 90 days Active Alendronate Sodium 70 MG 1 tablet 30 minutes before the first food, beverage or medicine of the day with plain water Orally weekly; Duration: 90 days 01/12/2025 Active Ibandronate Sodium 150 MG TAKE 1 TABLET BY MOUTH ONCE A MONTH; Duration: 90 Not-Taking Metoprolol Succinate ER 100 MG TAKE 1 TABLET BY MOUTH EVERY DAY; Duration: 90 Active Warfarin Sodium 5 MG 1 tablet Orally Once a day; Duration: 90 Active Losartan Potassium 100 MG TAKE 1 TABLET BY MOUTH EVERY DAY; Duration: 90 Active Atorvastatin Calcium 20 MG TAKE 1 TABLET BY MOUTH EVERY DAY; Duration: 90 Active Calcium + D3 one daily Active PreserVision AREDS 2 2 daily Active Immunizations Vaccine Route Administration Date Status Comme nts COVID Moderna Unknown 12/27/2020 Administered COVID Moderna Unknown 01/24/2021 Administered COVID Moderna Unknown 08/25/2021 Administered COVID Moderna Unknown 01/24/2022 Administered COVID-19 Moderna Unknown 07/08/2022 Administered Influenza, high dose seasonal Unknown 06/27/2019 Administered Influenza, high dose seasonal Unknown 07/08/2021 Administered Pneumococcal conjugate PCV 13 Unknown 01/22/2019 Administered Pneumococcal polysaccharide PPV23 Unknown 01/31/2010 Administered Pneumococcal polysaccharide PPV23 Unknown 12/17/2017 Administered Pneumococcal polysaccharide PPV23 Unknown 02/11/2020 Administered Tdap Unknown 05/25/2012 Administered Tdap IM Intramuscular 06/25/2023 Administered Social History Tobacco Use: Social History Observation Description Date Details (start date - stop date) Former Smoker NA - NA Tobacco Use/Smoking Question Answer Notes Are you a former smoker Alcohol Screen (Audit-C) Question Answer Notes Did you have a drink containing alcohol in the p ast year? No Points 0 Interpretation Negative Problems Problem Type SNOMED Code ICD Code Onset Dates Problem Status W/U Status Risk Notes Problem Mixed hyperlipidemia (132532541) Mixed hyperlipidemia (E78.2) Active confirmed Problem Degenerative disorder of macula (449981164) Unspecified macular degeneration (H35.30) Active confirmed Problem Bilateral tinnitus (6372727925463) Tinnitus, bilateral (H93.13) Active confirmed Problem Essential hypertension (95936534) Essential (primary) hypertension (I10) Active confirmed Problem Age-related osteoporosis (615974430) Age-related osteoporosis without current pathological fracture (M81.0) Active confirmed Problem Abnormal uterine bleeding (28537646585382) Abnormal uterine and vaginal bleeding, unspecified (N93.9) Active confirmed Problem Proteinuria (86485476) Proteinuria, unspecified (R80.9) Active confirmed Problem Adult health examination (171150664) Encounter for general adult medical examination without abnormal findings (Z00.00) Active confirmed Problem Personal history of primary malignant neoplasm of breast (780913092) Personal history of malignant neoplasm of breast (Z85.3) Active confirmed Problem Atrial fibrillation (41625997) Unspecified atrial fibrillation (I48.91) Active confirmed Problem Chronic kidney disease stage 3A (disorder) (791441117) Chronic kidney disease, stage 3a (N18.31) Active confirmed Vital Signs Heart Rate 74 /min 01/18/2025 Temperature 98.0 degrees Fahrenheit 01/18/2025 Oximetry 99 % 01/18/2025 Blood pressure diastolic 82 mm Hg 01/18/2025 Height 62.87 in 01/18/2025 Blood pressure systolic 110 mm Hg 01/18/2025 Weight 163.1 lbs 01/18/2025 BMI 29.01 kg/m2 01/18/2025 Encounters Encounter Location Date Provider Diagnosis [address] [place] [address] 07/15/2024 AMAYA GOMEZ Encounter for genera l adult medical examination without abnormal findings Z00.00 ; Essential (primary) hypertension I10 ; Mixed hyperlipidemia E78.2 and Age-related osteoporosis without current pathological fracture M81.[address] [address] 01/12/2025 AMAYA GOMEZ Essential (primary) hypertension I10 ; Mixed hyperlipidemia E78.2 ; Age-related osteoporosis without current pathological fracture M81.0 ; Personal history of malignant neoplasm of breast Z85.3 and Abnormal uterine and vaginal bleeding, unspecified N93.[address] [address] 01/18/2025 Ghadeer Mazloum Abnormal uterine and vaginal bleeding, unspecified N93.[address] [place] [address] 07/13/2024 AMAYA GOMEZ [address] [place] [address] 07/30/[address] [address] 12/29/2024 AMAYA GOMEZ Assessments Encounter Date Diagnosis (ICD Code) Assessment Notes Treatment Notes Treatment Clinical Notes Section Notes 01/12/2025 Mixed hyperlipidemia (ICD-10 - E78.2) Mrs. Tran is an 83-year-old lady with hypertension, hyperlipidemia, macular degeneration, atrial fibrillation, osteoporosis, status post breast cancer here for Medicare annual wellness visit. Plan is as follows: Hypertension with proteinuria. Blood pressure reasonably controlled on current regimen. Home readings within normal limits. Advised appropriate hydration. Hyperlipidemia. Last lipid panel within normal limits. Continue Atorvastatin 20 MG at night. Atrial fibrillation. She is rate-controlled and in sinus rhythm. She is on Warfarin and sees cardiology yearly. Chronic kidney disease stage III. Her GFR is 44 with creatinine of 1.22. She is asymptomatic. Avoid NSAIDs and appropriate hydration. Referred to Dr. Singh at [facility]. She is switched to alendronate 70 mg 1 tablet every weekly and bone density ordered. Class 1 obesity. Advised dietary restrictions and regimental exercise. Goal is to lose 5-6 lbs a month. Vaginal bleed. Intermittent vaginal bleed from a small pimple diagnosed by mortgage funder Dr. Guadalupe. She wants to have pelvic exam and she will make a follow-up appointment with our [place] [facility] screening. She sees her television operator regularly. Dental screening. She sees dentist regularly. Breast cancer screening. She has appointment for mammogram in February this year Immunizations. She is up-to-date on her COVID, TDAP, shingles, pneumonia and inluenza vaccinations. Blood work reviewed ORDERED General health concerns discussed with patient. 01/12/2025 Essential (primary) hypertension (ICD-10 - I10) Mrs. Tran is an 83-year-old lady with hypertension, hyperlipidemia, macular degeneration, atrial fibrillation, osteoporosis, status post breast cancer here for Medicare annual wellness visit. Plan is as follows: Hypertension with proteinuria. Blood pressure reasonably controlled on current regimen. Home readings within normal limits. Advised appropriate hydration. Hyperlipidemia. Last lipid panel within normal limits. Continue Atorvastatin 20 MG at night. Atrial fibrillation. She is rate-controlled and in sinus rhythm. She is on Warfarin and sees cardiology yearly. Chronic kidney disease stage III. Her GFR is 44 with creatinine of 1.22. She is asymptomatic. Avoid NSAIDs and appropriate hydration. Referred to Dr. Singh at [facility]. She is switched to alendronate 70 mg 1 tablet every weekly and bone density ordered. Class 1 obesity. Advised dietary restrictions and regimental exercise. Goal is to lose 5-6 lbs a month. Vaginal bleed. Intermittent vaginal bleed from a small pimple diagnosed by mortgage funder Dr. Guadalupe. She wants to have pelvic exam and she will make a follow-up appointment with our [place] Eye screening. She sees her television operator regularly. Dental screening. She sees dentist regularly. Breast cancer screening. She has appointment for mammogram in February this year Immunizations. She is up-to-date on her COVID, TDAP, shingles, pneumonia and inluenza vaccinations. Blood work reviewed ORDERED General health concerns discussed with patient. 01/18/2025 Abnormal uterine and vaginal bleeding, unspecified (ICD-10 - N93.9) Mrs. Tran is an 84-year-old lady with hypertension, hyperlipidemia, macular degeneration, atrial fibrillation, osteoporosis, status post breast cancer here for vaginal issues. She was seen by Dr. Guadalupe before, per patient U/S of the pelvis was negative for pathology, however that was done about 2 years ago. Plan as follows: Abnormal urterine and vaginal bleeding: - She has been experiencing Postcoital bleeding. She does use petroleum jelly as a lubricant. It is possible that it is due to atrophic vaginitis leading to vaginal dryness. Cannot exclude cervical polyps. Advised patient on following up with her mortgage funder, I will also send a referral to another gyncology in case if she is required to have referral since it has been two years. I have rendered the services for this patient under direct supervision of Dr. Gomez, who did not see the patient but was available upon request 07/15/2024 Encounter for general adult medical examination without abnormal findings (ICD-10 - Z00.00) Mrs. Tran is an 83-year-old lady with hypertension, hyperlipidemia, macular degeneration, atrial fibrillation, osteoporosis, status post breast cancer here for Medicare annual wellness visit. Plan is as follows: Hypertension with proteinuria. Blood pressure reasonably controlled on current regimen. Home readings within normal limits. Advised appropriate hydration. Hyperlipidemia. Last lipid panel within normal limits. Continue Atorvastatin 20 MG at night. Atrial fibrillation. She is rate-controlled and in sinus rhythm. She is on Warfarin and sees cardiology yearly. EKG is atrial fibrillation with no acute ST or T wave changes, no bundle-branch blocks, normal intervals Chronic kidney disease stage III. Her GFR is 44 with creatinine of 1.22. She is asymptomatic. Avoid NSAIDs and appropriate hydration. Referred to Dr. Singh at [facility]. She is on Ibandronate 150 MG once a month. Class 1 obesity. Advised dietary restrictions and regimental exercise. Goal is to lose 5-6 lbs a month. Eye screening. She sees her television operator regularly. Dental screening. She sees dentist regularly. Breast cancer screening. She is up-to-date on her mammogram. Immunizations. She is up-to-date on her COVID, TDAP, shingles, pneumonia and inluenza vaccinations. Blood work reviewed with patient and questions answered. General health concerns discussed with patient. Scribe services used to formulate this note under HIPAA compliance and under [place] law mandated for scribe services. Patient aware of service. Verbal consent and written consent taken from the patient. Patient understands and verbalizes understanding of the scribes services and all questions answered regarding scribes services. Patient agrees to use of scribes services. 07/15/2024 Essential (primary) hypertension (ICD-10 - I10) Mrs. Tarn is an 83-year-old lady with hypertension, hyperlipidemia, macular degeneration, atrial fibrillation, osteoporosis, status post breast cancer here for Medicare annual wellness visit. Plan is as follows: Hypertension with proteinuria. Blood pressure reasonably controlled on current regimen. Home readings within normal limits. Advised appropriate hydration. Hyperlipidemia. Last lipid panel within normal limits. Continue Atorvastatin 20 MG at night. Atrial fibrillation. She is rate-controlled and in sinus rhythm. She is on Warfarin and sees cardiology yearly. EKG is atrial fibrillation with no acute ST or T wave changes, no bundle-branch blocks, normal intervals Chronic kidney disease stage III. Her GFR is 44 with creatinine of 1.22. She is asymptomatic. Avoid NSAIDs and appropriate hydration. Referred to Dr. Singh at [facility]. She is on Ibandronate 150 MG once a month. Class 1 obesity. Advised dietary restrictions and regimental exercise. Goal is to lose 5-6 lbs a month. Eye screening. She sees her television operator regularly. Dental screening. She sees dentist regularly. Breast cancer screening. She is up-to-date on her mammogram. Immunizations. She is up-to-date on her COVID, TDAP, shingles, pneumonia and inluenza vaccinations. Blood work reviewed with patient and questions answered. General health concerns discussed with patient. Scribe services used to formulate this note under HIPAA compliance and under [place] law mandated for scribe services. Patient aware of service. Verbal consent and written consent taken from the patient. Patient understands and verbalizes understanding of the scribes services and all questions answered regarding scribes services. Patient agrees to use of scribes services. 01/12/2025 Age-related osteoporosis without current pathological fracture (ICD-10 - M81.0) Mrs. Tran is an 83-year-old lady with hypertension, hyperlipidemia, macular degeneration, atrial fibrillation, osteoporosis, status post breast cancer here for Medicare annual wellness visit. Plan is as follows: Hypertension with proteinuria. Blood pressure reasonably controlled on current regimen. Home readings within normal limits. Advised appropriate hydration. Hyperlipidemia. Last lipid panel within normal limits. Continue Atorvastatin 20 MG at night. Atrial fibrillation. She is rate-controlled and in sinus rhythm. She is on Warfarin and sees cardiology yearly. Chronic kidney disease stage III. Her GFR is 44 with creatinine of 1.22. She is asymptomatic. Avoid NSAIDs and appropriate hydration. Referred to Dr. Singh at [facility]. She is switched to alendronate 70 mg 1 tablet every weekly and bone density ordered. Class 1 obesity. Advised dietary restrictions and regimental exercise. Goal is to lose 5-6 lbs a month. Vaginal bleed. Intermittent vaginal bleed from a small pimple diagnosed by mortgage funder Dr. Guadalupe. She wants to have pelvic exam and she will make a follow-up appointment with our [facility]. She sees her television operator regularly. Dental screening. She sees dentist regularly. Breast cancer screening. She has appointment for mammogram in February this year Immunizations. She is up-to-date on her COVID, TDAP, shingles, pneumonia and inluenza vaccinations. Blood work reviewed ORDERED General health concerns discussed with patient. 07/15/2024 Mixed hyperlipidemia (ICD-10 - E78.2) Mrs. Tran is an 83-year-old lady with hypertension, hyperlipidemia, macular degeneration, atrial fibrillation, osteoporosis, status post breast cancer here for Medicare annual wellness visit. Plan is as follows: Hypertension with proteinuria. Blood pressure reasonably controlled on current regimen. Home readings within normal limits. Advised appropriate hydration. Hyperlipidemia. Last lipid panel within normal limits. Continue Atorvastatin 20 MG at night. Atrial fibrillation. She is rate-controlled and in sinus rhythm. She is on Warfarin and sees cardiology yearly. EKG is atrial fibrillation with no acute ST or T wave changes, no bundle-branch blocks, normal intervals Chronic kidney disease stage III. Her GFR is 44 with creatinine of 1.22. She is asymptomatic. Avoid NSAIDs and appropriate hydration. Referred to Dr. Singh at [facility]. She is on Ibandronate 150 MG once a month. Class 1 obesity. Advised dietary restrictions and regimental exercise. Goal is to lose 5-6 lbs a month. Eye screening. She sees her television operator regularly. Dental screening. She sees dentist regularly. Breast cancer screening. She is up-to-date on her mammogram. Immunizations. She is up-to-date on her COVID, TDAP, shingles, pneumonia and inluenza vaccinations. Blood work reviewed with patient and questions answered. General health concerns discussed with patient. Scribe services used to formulate this note under HIPAA compliance and under [place] law mandated for scribe services. Patient aware of service. Verbal consent and written consent taken from the patient. Patient understands and verbalizes understanding of the scribes services and all questions answered regarding scribes services. Patient agrees to use of scribes services. 01/12/2025 Personal history of malignant neoplasm of breast (ICD-10 - Z85.3) Mrs. Tran is an 83-year-old lady with hypertension, hyperlipidemia, macular degeneration, atrial fibrillation, osteoporosis, status post breast cancer here for Medicare annual wellness visit. Plan is as follows: Hypertension with proteinuria. Blood pressure reasonably controlled on current regimen. Home readings within normal limits. Advised appropriate hydration. Hyperlipidemia. Last lipid panel within normal limits. Continue Atorvastatin 20 MG at night. Atrial fibrillation. She is rate-controlled and in sinus rhythm. She is on Warfarin and sees cardiology yearly. Chronic kidney disease stage III. Her GFR is 44 with creatinine of 1.22. She is asymptomatic. Avoid NSAIDs and appropriate hydration. Referred to Dr. Singh at [facility]. She is switched to alendronate 70 mg 1 tablet every weekly and bone density ordered. Class 1 obesity. Advised dietary restrictions and regimental exercise. Goal is to lose 5-6 lbs a month. Vaginal bleed. Intermittent vaginal bleed from a small pimple diagnosed by mortgage funder Dr. Guadalupe. She wants to have pelvic exam and she will make a follow-up appointment with our [facility]. She sees her television operator regularly. Dental screening. She sees dentist regularly. Breast cancer screening. She has appointment for mammogram in February this year Immunizations. She is up-to-date on her COVID, TDAP, shingles, pneumonia and inluenza vaccinations. Blood work reviewed ORDERED General health concerns discussed with patient. 07/15/2024 Age-related osteoporosis without current pathological fracture (ICD-10 - M81.0) Mrs. Tran is an 83-year-old lady with hypertension, hyperlipidemia, macular degeneration, atrial fibrillation, osteoporosis, status post breast cancer here for Medicare annual wellness visit. Plan is as follows: Hypertension with proteinuria. Blood pressure reasonably controlled on current regimen. Home readings within normal limits. Advised appropriate hydration. Hyperlipidemia. Last lipid panel within normal limits. Continue Atorvastatin 20 MG at night. Atrial fibrillation. She is rate-controlled and in sinus rhythm. She is on Warfarin and sees cardiology yearly. EKG is atrial fibrillation with no acute ST or T wave changes, no bundle-branch blocks, normal intervals Chronic kidney disease stage III. Her GFR is 44 with creatinine of 1.22. She is asymptomatic. Avoid NSAIDs and appropriate hydration. Referred to Dr. Singh at [facility]. She is on Ibandronate 150 MG once a month. Class 1 obesity. Advised dietary restrictions and regimental exercise. Goal is to lose 5-6 lbs a month. Eye screening. She sees her television operator regularly. Dental screening. She sees dentist regularly. Breast cancer screening. She is up-to-date on her mammogram. Immunizations. She is up-to-date on her COVID, TDAP, shingles, pneumonia and inluenza vaccinations. Blood work reviewed with patient and questions answered. General health concerns discussed with patient. Scribe services used to formulate this note under HIPAA compliance and under [place] law mandated for scribe services. Patient aware of service. Verbal consent and written consent taken from the patient. Patient understands and verbalizes understanding of the scribes services and all questions answered regarding scribes services. Patient agrees to use of scribes services. 01/12/2025 Abnormal uterine and vaginal bleeding, unspecified (ICD-10 - N93.9) Mrs. Tran is an 83-year-old lady with hypertension, hyperlipidemia, macular degeneration, atrial fibrillation, osteoporosis, status post breast cancer here for Medicare annual wellness visit. Plan is as follows: Hypertension with proteinuria. Blood pressure reasonably controlled on current regimen. Home readings within normal limits. Advised appropriate hydration. Hyperlipidemia. Last lipid panel within normal limits. Continue Atorvastatin 20 MG at night. Atrial fibrillation. She is rate-controlled and in sinus rhythm. She is on Warfarin and sees cardiology yearly. Chronic kidney disease stage III. Her GFR is 44 with creatinine of 1.22. She is asymptomatic. Avoid NSAIDs and appropriate hydration. Referred to Dr. Singh at [facility]. She is switched to alendronate 70 mg 1 tablet every weekly and bone density ordered. Class 1 obesity. Advised dietary restrictions and regimental exercise. Goal is to lose 5-6 lbs a month. Vaginal bleed. Intermittent vaginal bleed from a small pimple diagnosed by mortgage funder Dr. Guadalupe. She wants to have pelvic exam and she will make a follow-up appointment with our [facility]. She sees her television operator regularly. Dental screening. She sees dentist regularly. Breast cancer screening. She has appointment for mammogram in February this year Immunizations. She is up-to-date on her COVID, TDAP, shingles, pneumonia and inluenza vaccinations. Blood work reviewed ORDERED General health concerns discussed with patient. Plan Of Treatment Pending Test Test Name Order Date Bone Density 01/12/2025 COMPREHENSIVE METABOLIC PANEL 08/04/2019 LIPID PANEL 08/04/2019 MICROALBUMIN, URINE 08/04/2019 Future Test Test Name Order Date Albumin/Creatinine Ratio,[id number] Lipid Panel-[id number] 01/12/2025 Comp. Metabolic Panel [id number] 2024 Next Appt Details Provider Name:Prakash Darnell 07/19/2025 02:30:00 PM, [address] [place] [address], [place], [id number], Insurance Providers Payer Name Payer Address Payer Phone Subscriber Number Group Number Insured Name Patient Relationship to Insured Coverage Start Date Coverage End Date [employer] Preferred [address] [place] [address] [phone] [id number] Jose Armando Tran Self - patient is the insured 2 Medical (General) History Medical History History ICD Code hypertension, benign hyperlipidemia Chronic A. fib on Coumadin and she sees Dr. Dangelo Oste[facility]osis Status post breast cancer Renal cysts Early signs of macular degeneration and she follows ophthalmology Surgical History Surgery Date(Month/Year) lumpectomy, right 2016 lumpectomy, left 2003 cholecystectomy 1964
--- OUTSIDE RECORDS SUMMARY | 2025-06-30 12:35 | XMS_ITS | Clinical Summary ---
Author Organization [address] [facility] Address [address] [facility] [place] [address] Phone Care Team Providers Care Towboat Engineer Name Role Phone Patrice Alvarez MD Primary Care Provider Allergies Active Allergy Reactions Criticality Noted Date Comments Influenza A (H1n1) Virus Vac cine Monovalent 200810/04/2024 Penicillins 10/10/2017 Medications warfarin (COUMADIN) 1 mg tablet Take 1-2 [...] Take 100 mg by mouth daily. Active losartan-hydroC HLOROthiazide (HYZAAR) 100-25 mg per tablet Take 1 tablet by mouth 1 (one) time each day. Active warfarin (COUMADIN) 5 mg tablet TAKE 1 TABLET BY MOUTH EVERY DAY 90 tablet 3 11/30/2024 Active Active Problems Problem Noted Date Diagnosed Date A-fib (CMS/HCC V24, CMS/HCC V28) 09/29/2024 Assessment & Plan (03/08/2025 12:35 PM EDT): Orders: ECG 12 lead Tricuspid valve insufficiency, non-rheumatic Hypertension 11/21/2021 Assessment & Plan (03/08/2025 12:35 PM EDT): Nonrheumatic mitral valve regurgitation 11/21/19 22 SOB (shortness of breath) 11/21/2021 Heart murmur 11/08/2020 Overview (10/04/2024): Murmur Hyperlipidemia 11/08/2020 Overview (10/04/2024): Hyperlipidemia Encounters Date Type Department Care Team Description 06/29/2025 Anticoagulation - Warfarin Visit [facility] - [address] [place] [address] Jeet Gong MD Atrial fibrillation, unspecified type (CMS/HCC V24, CMS/HCC V28) (Primary Dx) 06/15/2025 Anticoagulation - Warfarin Visit [facility] - [address] [place] [address] Jeet Gong MD Atrial fibrillation, unspecified type (CMS/HCC V24, CMS/HCC V28) (Primary Dx) 06/08/2025 Anticoagulation - Warfarin Visit [facility] - [address] [place] [address] Jeet Gong MD Atrial fibrillation, unspecified type (CMS/HCC V24, CMS/HCC V28) (Primary Dx) 06/01/2025 Anticoagulation - Warfarin Visit [facility] - [address] [place] [address] Jeet Gong MD Atrial fibrillation, unspecified type (CMS/HCC V24, CMS/HCC V28) (Primary Dx) 05/18/2025 8:04 AM EDT - 05/18/2025 11:59 PM EDT Hospital Encounter [facility] D[address] [place] [id number] Discharge Disposition: Home or Self Care 05/04/2025 Anticoagulation - Warfarin Visit [facility] - [address] [place] [address] Jeet Gong MD Atrial fibrillation, unspecified type (CMS/HCC V24, CMS/HCC V28) (Primary Dx) 04/06/2025 Anticoagulation - Warfarin Visit [facility] - [facility] [address] [facility] [address] [place] [address] Jeet Gong MD Atrial fibrillation, unspecified type (CMS/HCC V24, CMS/HCC V28) (Primary Dx) from Last 3 Months Surgical History Surgery Date Site/Laterality Comments BREAST LUMPECTOMY Bilateral Medical History Medical History Date Comments BRCA1 gene mutation negative BRCA2 gene mutation negative Breast cancer (CMS/HCC V24, CMS/HCC V28) Family History Medical History Relation Name Comments Breast cancer Father's Sister Relation Name Status Comments Father's Sister Alive Social History Tobacco Use Types Packs/Day Years Used Date Smoking Tobacco: Former Smokeless Tobacco: Never Alcohol Use Standard Drinks/Week Comments No 0 (1 standard drink = 0.6 oz pur e alcohol) Comments No Sex and Gender Information Value Date Recorded Sex Assigned at Not on file Legal Sex Female 4:48 AM EST Gender Identity Not on file Sexual Orientation Not on file Obstetrics History Para Term AB IAB SAB Ectopic Multiple Livin g Live Births 1 Last Filed Vital Signs Vital Sign Reading Time Taken Comments Blood Pressure 124/74 03/01/2025 1:34 PM EDT Pulse 75 03/01/2025 1:34 PM EDT Temperature - - Respiratory Rate - - Oxygen Saturation 99% 03/01/2025 1:34 PM EDT Inhaled Oxygen Concentration - - Weight 74.8 kg (165 lb) 03/28/2025 8:32 AM EDT Height 157.5 cm (5' 2 ) 03/28/2025 8:32 AM EDT Body Mass Index 30.18 03/28/2025 8:32 AM EDT Plan of Treatment Upcoming Encounters Date Type Department Care Team (Late st Contact Info) Description 09/06/2025 1:10 PM EST Office Visit [facility] - [facility] [address] [facility] [address] [place] [phone] Yulissa Mukherjee PA [address] [place] [address] [place] [address] Health Maintenance Due Date Last Done Comments Zoster Vaccines (2 of 2) 10/08/2019 08/13/2019 Falls Risk Assessment 10/04/2022 Medicare Annual Wellness Visit 10/04/2022 Social Influencers of Health Screening 10/04/2022 Depression Screening 10/27/2024 COVID-19 Vaccine (8 - Moderna risk season) 2025 07/06/2024, 07/14/2023, 07/08/2022, Additional history exists Influenza Vaccine (#1) 2025 , 07/01/2023, 07/08/2022, Additional history exists Hypertension/CHF/CAD Annual BMP Blood Test 06/21/2026 06/21/2025, 01/12/2025 Cholesterol Screening (Lipid Panel) 01/12/2030 01/12/2025 DTaP,Tdap,and Td Vaccines (3 - Td or Tdap) 06/25/2033 06/25/2023, 05/25/2012 Osteoporosis Screening (Bone Density Screening) 05/18/2035 05/18/2025, 03/18/2023, 03/05/2021, Additional history exists Pneumococcal Vaccine: 50+ Years Completed 02/11/2020, 01/22/2019, 12/17/2017, Additional history exists RSV Immunization Adult Patients Completed 07/01/2023 HIB Vaccines Aged Out No longer eligi [...] patient's age to complete this topic Meningococcal B Vaccine Aged Out No l onger eligible based on patient's age to complete this topic RSV Immunization Patients Under 20 months Aged Out No longer eligible based on patient's age to complete this topic Varicella Vaccines Aged Out No longer eligible based on patient's age to complete this topic Procedures Procedure Name Priority Date/Time Associated Diagnosis Comments PROTHROMBIN TIME WITH INR Routine 06/29/2025 9:13 AM EDT Atrial fibrillation, unspecified type (CMS/HCC V24, CMS/HCC V28) CREATININE, SERUM Routine 06/21/2025 8:4 3 AM EDT Secondary renovascular hypertension, malignant Chronic kidney disease (CKD) stage G3a/A1, moderately decreased glomerular filtration rate (GFR) between 45-59 mL/min/1.73 square meter and albuminuria creatinine ratio les* (CMS/HCC V24, CMS/HCC V28) Acquired cyst of kidney ELECTROLYTE PANEL Routine 06/21/2025 8:4 3 AM EDT Secondary renovascular hypertension, malignant Chronic kidney disease (CKD) stage G3a/A1, moderately decreased glomerular filtration rate (GFR) between 45-59 mL/min/1.73 square meter and albuminuria creatinine ratio les* (CMS/HCC V24, CMS/HCC V28) Acquired cyst of kidney BUN Routine 06/21/2025 8:43 AM EDT Secondary renovascular hypertension, malignant Chronic kidney disease (CKD) stage G3a/A1, moderately decreased glomerular filtration rate (GFR) between 45-59 mL/min/1.73 square meter and albuminuria creatinine ratio les* (CMS/HCC V24, CMS/HCC V28) Acquired cyst of kidney PROTHROMBIN TIME WITH INR Routine 06/15/2025 8:43 AM EDT Atrial fibrillation, unspecified type (CMS/HCC V24, CMS/HCC V28) PROTHROMBIN TIME WITH INR Routine 06/08/2025 8:43 AM EDT Atrial fibrillation, unspecified type (CMS/HCC V24, CMS/HCC V28) PROTHROMBIN TIME WITH INR Routine 06/01/2025 8:56 AM EDT Atrial fibrillation, unspecified type (CMS/HCC V24, CMS/HCC V28) BD BONE DENSITY DXA AXIAL SKELETON Routine 05/18/2025 8:28 AM EDT Age-related osteoporosis without current pathological fracture PROTHROMBIN TIME WITH INR Routine 05/04/2025 8:46 AM EDT Atrial fibrillation, unspecified type (CMS/HCC V24, CMS/HCC V28) PROTHROMBIN TIME WITH INR Routine 04/06/2025 8:47 AM EDT Atrial fibrillation (CMS/HCC V24, CMS/HCC V28) LIPID PANEL WITH REFLEX TO DIRECT LDL Routine 01/12/2025 10:23 AM EDT Essential hypertension, malignant from Last 3 Months or Most Recently Relevant to Health Maintenance Results * (ABNORMAL) Prothrombin time with INR (06/29/2025 9:13 AM EDT) Only the most recent of6 resultswithin the time period is included. Protime 24.4(H) 10.6 - 13.9 sec LAB COAGULATION METHOD 06/29/2025 12:36 PM EDT [facility] INR 2.0 LAB COAGULATION METHOD 06/29/2025 12:36 PM EDT [facility] Blood Venous blood specimen / Unknown Venipuncture / Unknown 06/29/2025 9:13 AM EDT 06/29/2025 9:13 AM EDT Jeet Gong MD LAB BLOOD ORDERABLES Final Result [facility] [address] [place] [address], [place] [phone] * (ABNORMAL) Creatinine (06/21/2025 8:43 AM EDT) Creatinine 1.23(H) 0.50 - 1.10 mg/dL LAB CHEMISTRY METHOD 06/21/2025 1:59 PM EDT [facility] eGFR 43(L) >=60 mL/min/1. 73m2 LAB CHEMISTRY METHOD 06/21/2025 1:59 PM EDT [facility] Comment:Calculation based on the Chronic Kidney Disease Epidemiology Collaboration (CKD-EPI) equation refit without adjustment for race. Blood Venous blood specimen / Unknown Venipuncture / Unknown 06/21/2025 8:43 AM EDT 06/21/2025 8:43 AM EDT us Spenser Singh MD LAB BLOOD ORDERABLES Final Resul t Performing Organization Address City/[facility]/ZIP Co de Phone Number [facility] [address] [place] [address], [place] [phone] * BUN (06/21/2025 8:43 AM EDT) Pathologist [facility] BUN 24 5 - 25 mg/dL LAB CHEMISTRY METHOD 06/21/2025 1:59 PM EDT [facility] Blood Venous blood specimen / Unknown Venipuncture / Unknown 06/21/2025 8:43 AM EDT 06/21/2025 8:43 AM EDT us Spenser Singh MD LAB BLOOD ORDERABLES Final Resul t Performing Organization Address [facility] Co de Phone Number [facility] [address] [place] [address], [place] [phone] * Electrolyte panel (06/21/2025 8:43 AM EDT) Sodium 139 133 - 145 mmol/L LAB CHEMISTRY METHOD 06/21/2025 1:59 PM EDT [facility] Potassium 4.3 3.5 - 5.5 mmol/L LAB CHEMISTRY METHOD 06/21/2025 1:59 PM EDT [facility] Chloride 105 96 - 110 mmol/L LAB CHEMISTRY METHOD 06/21/2025 1:59 PM EDT [facility] CO2 29 21 - 32 mmol/L LAB CHEMISTRY METHOD 06/21/2025 1:59 PM EDT [facility] Anion Gap 5 3 - 11 LAB CHEMISTRY METHOD 06/21/2025 1:59 PM EDT [facility] Blood Venous blood specimen / Unknown Venipuncture / Unknown 06/21/2025 8:43 AM EDT 06/21/2025 8:43 AM EDT us Spenser Singh MD LAB BLOOD ORDERABLES Final Resul t [facility] [address] [place] [address], [place] [phone] * BD Bone Density DXA Axial Skeleton (05/18/2025 8:28 AM EDT) Anatomical Region Laterality Modality Wrist, Hip, L-spine Bone Densito metry 05/18/2025 8:59 AM EDT Impressions 05/18/2025 9:01 AM EDT 1. Osteopenia. There has been an increase [...] probability of hip fracture of 5.0%. Code 22110 -------- FINAL REPORT -------- Dictated By: Patrick Banerjee Dictated Date: 05/18/2025 08:59 ET Assigned Physician: Patrick Banerjee Reviewed and Electronically Signed By: Patrick Banerjee Signed Date: 05/18/2025 09:01 ET Workstation ID: [id number] Transcribed By: Self Edit Transcribed Date: 05/18/2025 08:59 ET Narrative 05/18/2025 9:01 AM EDT HISTORY: The patient is an 84-year-old postmenopausal [...] mineral density of the femurs bilaterally is 0.848 gm/cm2 which is 84% of that of young normals and 112% of that of age matched controls. This yields a T-score of -1.3 and a Z-score of 0.7 which is diagnostic of osteopenia. The T-score of the right femoral neck is -2.1 and that of the left femoral neck is -2.0 which is diagnostic of osteopenia. Procedure Note Patrick Banerjee MD - 05/18/2025 HISTORY: The patient is an 84-year-old postmenopausal female withclinical concern for metabolic bone disease. FINDINGS: Dual energy x-ray absorptiometry of the lumbar spine and femursis performed. The mean bone mineral density at L2-3 is 1.231 gm/cm2 whichis 103% of that of young normals and 122% of that of age matched controls.This yields a T-score of 0.3 and a Z-score of 1.8 and there is thereforeno evidence of osteoporosis or osteopenia here. The mean bone mineral density of the femurs bilaterally is 0.848 gm/bq1vedlr is 84% of that of young normals and 112% of that of age matchedcontrols. This yields a T-score of -1.3 and a Z-score of 0.7 which isdiagnostic of osteopenia. The T- score of the right femoral neck is -2.1and that of the left femoral neck is -2.0 which is diagnostic ofosteopenia. IMPRESSION: 1. Osteopenia. There has been an increase of 5.8% in bone mineral densityin the lumbar spine since the prior examination of 03/18/2023. There hasbeen a decrease of 1.1% in bone mineral density in the right femur and adecrease of 1.5% in bone mineral density in the left femur. 2. FRAX analysis yields a 10-year probability of major osteoporoticfracture of 16.0% and a 10-year probability of hip fracture of 5.0%. Code 37991 -------- FINAL REPORT -------- Dictated By: Patrick Banerjee Dictated Date: 05/18/2025 08:59 ET Assigned Physician: Patrick Banerjee Reviewed and Electronically Signed By: Patrick Banerjee Signed Date: 05/18/2025 09:01 ET Workstation ID: [id number] Transcribed By: Self Edit Transcribed Date: 05/18/2025 08:59 ET Patrice Alvarez MD IMG DXA PROCEDURES Final Resul t * Lipid panel with reflex to direct LDL (01/12/2025 10:23 AM EDT) Cholesterol 119 0 - 200 mg/dL LAB CHEMISTRY METHOD 01/12/2025 12:35 PM EDT [facility] Triglycerides 78 0 - 150 mg/dL LAB CHEMISTRY METHOD 01/12/2025 12:35 PM EDT [facility] HDL 55 >=40 mg/dL LAB CHEMISTRY METHOD 01/12/2025 12:35 PM EDT [facility] LDL Calculated 48 0 - 100 mg/dL LAB CHEMISTRY METHOD 01/12/2025 12:35 PM EDT [facility] VLDL Cholesterol Harvey 15.6 mg/dL LAB CHEMISTRY METHOD 01/12/2025 12:35 PM EDT [facility] Non HDL Chol. (LDL+VLDL) 64 <145 mg/dL LAB CHEMISTRY METHOD 01/12/2025 12:35 PM EDT [facility] Chol/HDL Ratio 2.2 0.0 - 4.4 LAB CHEMISTRY METHOD 01/12/2025 12:35 PM T [facility] Blood Venous blood specimen / Unknown Venipuncture / Unknown 01/12/2025 10:23 AM EDT 01/12/2025 10:23 AM EDT Patrice Alvarez MD LAB BLOOD ORDERABLES Final Res ult [facility] [place] [facility] [address] [place] [address], from Last 3 Months or Most Recently Relevant to Health Maintenance Insurance [employer] Advance Directives Documents on File Type Date Recorded Patient Industrial Sweeper Cleaner Expl anation Health Care Decision (hx) 11/24/2014 [...] DIRECTIVE Health Care Decision (hx) 11/24/2014 AD MZT DIRECTIVE Health Care Decision (hx) 11/24/2014 AD MTZ DIRECTIVE Health Care Decision (hx) 11/24/2014 AD MTZ DIRECTIVE Care Teams Towboat Engineer Relationship Specialty Start Date End Date Patrice Alvarez MD [address] [place] [address] PCP - General Internal Medicine 09/18/20
== END 2025-06-30 11:42 | disposition home or self-care (01) ==
LOC: HO.HKAS 10:59
PROVIDERS: PCP Hospitalist; Visit Provider Internal Medicine Nephrology
DX: I15.0 Renovascular hypertension (principal); N18.31 Chronic kidney disease, stage 3a; N28.1 Cyst of kidney, acquired
CPT/HCPCS: 99214